=== PATIENT | female | born 1965 | race Caucasian/White ===

== ENCOUNTER → 2023-01-14 | Outpatient (CLI) | payer BC ==
--- NOTE | 2023-01-14 09:08 | CT ---
EXAMINATION TYPE: CT soft tissue neck w con DATE OF EXAM: 01/14/2023 COMPARISON: None HISTORY: Enlarged lymph nodes. CT DLP: 535.7 mGycm CONTRAST: CT scan of the neck is performed with IV Contrast, patient injected with 100ml mL of Isovue 300. Contrast enhanced CT of the neck was performed from the skull base through the lung apices. AIRWAY: The supraglottic, glottic, and subglottic portions of the airway appear patent and free of mass. SALIVARY GLANDS: BB markers are placed bilaterally which correspond to the lower poles of the submand ibular glands. The right submandibular gland measures 3.5 x 1.9 cm and the left submandibular gland m easures 3.3 x 1.7 cm. The submandibular and parotid glands are free of mass or inflammatory process. THYROID GLAND: No nodules or masses seen. LYMPH NODES: No adenopathy seen greater than 1cm. LUNG APICES: No nodule or mass is seen. OTHER: Vascular structures are patent. No significant degenerative change of the cervical spine. N o abscess seen. IMPRESSION: BB markers are placed bilaterally which correspond to the lower poles of the submandibular glands. Th e submandibular glands appear to be free of mass or inflammatory process. No adenopathy present.
== END | disposition home or self-care (01) ==
LOC: RADCTMAIN 08:34
PROVIDERS: ATTEND Otolaryngology
DX: K11.23 Chronic sialoadenitis (principal); R59.0 Localized enlarged lymph nodes
CPT/HCPCS: 70491; Q9967